=== PATIENT | male | born 1960 | race Caucasian/White ===

== ENCOUNTER 2018-08-20 11:07 | Observation (INO) | payer BC ==
[2018-08-20] MEDS ORDERED: NS 0.9% 1000 ML* 1,000 ML IV ONE (11:53)
[2018-08-20] MEDS ORDERED: Ondansetron INJ* 2 MG/ML VIAL IV ONE (11:53)
[2018-08-20 12:07] LABS: ABS Basophils 0 10^3/ul (0-0.2); ABS Eosinophils 0.1 10^3/ul (0-0.6); ABS Lymphocytes 1.5 10^3/ul (1.0-4.8); ABS Monocytes 0.5 10^3/ul (0-0.8); ABS Neutrophils 3.8 10^3/ul (1.5-7.7); ABS Nucleated RBC 0 10^3/ul; Eosinophil % 0.9 % (0-6); Hematocrit 39 % (42-52); Hemoglobin 13.9 g/dl (14.0-18.0); Lymphocyte % 25.6 % (25-47); Mean Corpuscular HGB Conc 35 g/dl (31-36); Mean Corpuscular Hemoglobin 32 pg (27-31); Mean Corpuscular Volume 91 fL (80-94); Mean Platelet Volume 8.1 um3 (7.4-10.4); Nucleated Red Blood Cells % 0.1; Platelet Count 230 10^3/ul (150-450); Red Blood Count 4.35 10^6/ul (4.00-5.40); Red Cell Distribution Width 13 % (10.5-15); White Blood Count 5.9 10^3/ul (3.5-10.8)
--- NOTE | 2018-08-20 12:19 | ED ---
GI/ HPI - HPI Summary HPI Summary: A 57 y/o male presents to the ED c/o hematemesis since 2:30 08/20/2018. He also c /o heart burn, nausea and black tarry stool. He is on Coumadin because he has a Hx of A-fib. He rates his pain as 2/10. According to the pt, his INR level was 2.08 on 08/16/2018. He is a non smoker but drinks 6 beers a day. He denies shaking when waking up. He denies fever, chills, CONCEPCION, ear pain, sore throat, blurred vision, double vision, neck pain, CP, ABD pain, SOB, back pain, dysuria , hematuria, constipation, edema, bruising, and rashes. He also takes 2 1mg Xanax per day for anxiety. - History of Current Complaint Chief Complaint: EDGIBleed Stated Complaint: BLOOD IN STOOL/VOMIT Hx Obtained From: Patient Onset/Duration: Started Hours Ago Severity: Moderate Current Severity: Moderate Pain Intensity: 2 Location of Pain: Diffuse Associated Signs and Symptoms: Positive: Hematemesis, Black Tarry Stool - Allergy/Home Medications Allergies/Adverse Reactions: Allergies Allergy/AdvReac Type Severity Reaction Status Date / Time No Known Allergies Allergy Verified 08/20/18 11:18 PMH/Surg Hx/FS Hx/Imm Hx Endocrine/Hematology History: Denies: Hx Anticoagulant Therapy, Hx Diabetes Cardiovascular History: Reports: Hx Atrial Fibrillation, Hx Hypercholesterolemia , Hx Hypertension, Other Cardiovascular Problems/Disorders - a fib Denies: Hx Pacemaker/ICD Respiratory History: Denies: Hx Asthma History: Reports: Other Problems/Disorders - HX OF PROSTATE CANCER Denies: Hx Dialysis, Hx Renal Disease Musculoskeletal History: Reports: Other Musculoskeletal History Sensory History: Reports: Hx Contacts or Glasses - GLASSES Denies: Hx Hearing Aid Opthamlomology History: Reports: Hx Contacts or Glasses - GLASSES Psychiatric History: Denies: Hx Panic Disorder - Cancer History Cancer Type, Location and Year: prostate - Surgical History Surgery Procedure, Year, and Place: 2 SURGERIES ON BACK. HERNIA. PROSTATE REMOVE. RIGHT HAND REPAIR. NECK SURGERY. VARICOSE VEINS RIGHT LEG. LEFT ANKLE Hx Anesthesia Reactions: No Infectious Disease History: No Infectious Disease History: Denies: Traveled Outside the [place] in Last 30 Days - Family History Known Family History: Negative: Cardiac Disease, Hypertension, Diabetes - Social History Alcohol Use: Daily Alcohol Amount: 6 beers Hx Substance Use: No Substance Use Type: Reports: Marijuana Substance Use Comment - Amount & Last Used: recreation Hx Tobacco Use: No Smoking Status (MU): Never Smoked Tobacco Review of Systems Negative: Fever, Chills Eyes: Negative - Double vision Negative: Blurred Vision ENT: Negative - Neck pain Negative: Sore Throat, Ear Ache Negative: Chest Pain Negative: Shortness Of Breath Gastrointestinal: Negative - constipation, Other - Positive: hematemesis, black tarry stool, heart burn Positive: Vomiting, Nausea. Negative: Abdominal Pain Negative: dysuria, hematuria Negative: Myalgia - back pain Negative: Rash, Bruising Negative: Headache All Other Systems Reviewed And Are Negative: No Physical Exam - Summary Physical Exam Summary: Appearance: Alert, conversive, nontoxic appearing Skin: Warm, dry, no mottling, no rashes, bruise right humerus HEENT: EOMI, PERRL, slightly dry mucous membranes Neck: No masses on the neck, supple Respiratory: Clear to auscultation, breath sounds present, no rales, no rhonchi , no wheezes Cardiovascular: RRR, pulses are symmetrical in both lower and upper extremities Abdomen: Soft, non-tender Bowel Sounds: Present Musculoskeletal: No CVA tenderness, no obvious deformity, moving all extremities in a grossly normal manner Neurological: A&Ox3, CN II-XII Intact, moving all extremities symmetrically Psychiatric: Normal affect and mood Triage Information Reviewed: Yes Vital Signs On Initial Exam: Initial Vitals Temp Pulse Resp BP Pulse Ox 98.6 F 81 16 175/91 96 08/20/18 11:13 08/20/18 11:13 08/20/18 11:13 08/20/18 11:13 08/20/18 11:13 Vital Signs Reviewed: Yes Diagnostics - Vital Signs Vital Signs Temp Pulse Resp BP Pulse Ox 08/20/18 11:36 78 16 178/94 99 08/20/18 11:35 78 14 98 08/20/18 11:13 98.6 F 81 16 175/91 96 - Laboratory Lab Results: Lab Results 08/20/18 Range/Units 11:54 WBC 5.9 (3.5-10.8) 10^3/ul RBC 4.35 (4.00-5.40) 10^6/ul Hgb 13.9 L (14.0-18.0) g/dl Hct 39 L (42-52) % MCV 91 (80-94) fL MCH 32 H (27-31) pg MCHC 35 (31-36) g/dl RDW 13 (10.5-15) % Plt Count 230 (150-450) 10^3/ul MPV 8.1 (7.4-10.4) um3 Neut % (Auto) 64.6 (38-83) % Lymph % (Auto) 25.6 (25-47) % Wharton % (Auto) 8.1 H (0-7) % Eos % (Auto) 0.9 (0-6) % Baso % (Auto) 0.8 (0-2) % Absolute Neuts (auto) 3.8 (1.5-7.7) 10^3/ul Absolute Lymphs (auto) 1.5 (1.0-4.8) 10^3/ul Absolute Monos (auto) 0.5 (0-0.8) 10^3/ul Absolute Eos (auto) 0.1 (0-0.6) 10^3/ul Absolute Basos (auto) 0 (0-0.2) 10^3/ul Absolute Nucleated RBC 0 10^3/ul Nucleated RBC % 0.1 Result Diagrams: 08/20/18 14:33 08/20/18 11:54 Lab Statement: Any lab studies that have been ordered have been reviewed, and results considered in the medical decision making process. - Radiology CXR Radiology Interpretation Completed By: Radiologist - #. Mildly low lung volumes for this patient compared with the prior exam with corresponding mild atelectasis. This report has been reviewed by the ED physician. - EKG 11:33 Cardiac Rate: NL - 75 bpm EKG Rhythm: Sinus Rhythm Summary of EKG Findings: normal QRS, normal QTc, normal ST/T wave GIGU Course/Dx - Course Course Of Treatment: A 57 y/o male presents to the ED c/o hematemesis since 2: 30 08/20/2018. He also c/o heart burn, nausea and black tarry stool. His CXR showed mildly low lung volumes for this patient compared with the prior exam with corresponding mild atelectasis. His EKG was normal. He will be admitted to Dr. Claros with a diagnosis of GI bleed. - Diagnoses Provider Diagnoses: GI bleed - Physician Notifications Discussed Care Of Patient With: Sravani Claros Time Discussed With Above Provider: 12:15 Instructed by Provider To: Admit As Inpatient Discharge - Sign-Out/Discharge Documenting (check all that apply): Patient Departure - Admit - Discharge Plan Condition: Fair Disposition: ADMITTED TO [facility] - Billing Disposition and Condition Condition: FAIR Disposition: Admitted to [facility] - Attestation Statements Document Initiated by Scribe: Yes Documenting Scribe: Jim Michele Provider For Whom Scribe is Documenting (Include Credential): Swati Knutson MD Scribe Attestation: Jim Walton scribed for Swati Knutson MD on 08/20/18 at 1914. Scribe Documentation Reviewed: Yes Provider Attestation: The documentation as recorded by the Jim toth accurately reflects the service I personally performed and the decisions made by , Swati Knutson MD
[2018-08-20 12:21] LABS: EGFR Non-African American 119.4 (>60)
[2018-08-20 12:26] LABS: INR 3.11 (0.77-1.02)
--- NOTE | 2018-08-20 12:30 | RAD ---
Indication: Chest pain, nausea. Hematemesis last night. Comparison: November 20, 2017 Technique: Upright AP 1200 hours Report: Suboptimal inspiration compared with the prior exam with mild bibasilar subsegmental atelectasis. Negative for pleural effusion or pneumothorax. The heart, pulmonary vasculature, and mediastinal contours are unremarkable. Negative for free air beneath the diaphragm. Anterior cervical fusion hardware noted. IMPRESSION: #. Mildly low lung volumes for this patient compared with the prior exam with corresponding mild atelectasis.
[2018-08-20] MEDS ORDERED: Ondansetron INJ* 2 MG/ML VIAL IV PRN (14:15)
[2018-08-20 14:46] LABS: Hematocrit 40 % (42-52); Hemoglobin 14.2 g/dl (14.0-18.0)
[2018-08-20] MEDS ORDERED: Pantoprazole IV* 40 MG IV ONE (14:48)
[2018-08-20] MEDS ORDERED: Acetaminophen TAB* 325 MG PO PRN (14:56)
[2018-08-20] MEDS ORDERED: Thiamine IV* 100 MG/ML 2 ML VIAL IM ONE (14:56)
[2018-08-20] MEDS ORDERED: hydrALAZINE IV* 20 MG/ML VIAL IV SLOW PU PRN (15:02)
[2018-08-20] MEDS: Folic Acid TAB* 1 MG PO SCH (15:20)
[2018-08-20] MEDS: LORazepam TAB(*) 1 MG PO SCH ×2 (15:20→21:54)
[2018-08-20] MEDS: Lisinopril TAB* 10 MG PO SCH (15:20)
[2018-08-20] MEDS: Atenolol TAB* 50 MG PO SCH (15:20)
[2018-08-20] MEDS ORDERED: Phytonadione Oral Solution* 5 MG/25 ML UDC PO ONE (16:13)
[2018-08-20] MEDS: Octreotide Acetate* 500 MCG in NS 0.9% 100 ML* 100 ML IVPB SCH (16:21)
[2018-08-20] MEDS: Pantoprazole* 80 mg IN NS 80 MG/250 ML BAG IVPB SCH (17:15)
[2018-08-20] MEDS ORDERED: Magnesium Sulfate 2 GM IV* 2 GM/50 ML BAG IVPB ONE (19:37)
[2018-08-20] MEDS: ALPRAZolam TAB* 0.5 MG PO SCH (21:55)
[2018-08-20 22:23] LABS: Hematocrit 38 % (42-52); Hemoglobin 13.1 g/dl (14.0-18.0)
[2018-08-20 22:38] LABS: INR 2.04 (0.77-1.02)
--- NOTE | 2018-08-20 22:38 | HP ---
CC: Dr. Nelson* HISTORY AND PHYSICAL: DATE OF ADMISSION: 08/20/18 PROVIDER: Jennifer Wilson NP PRIMARY CARE PROVIDER: Dr. Nelson. ATTENDING PHYSICIAN WHILE IN THE HOSPITAL: Dr. Sravani Scott * (dictated by Jennifer Wilson NP). CHIEF COMPLAINT: Vomiting. HISTORY OF PRESENT ILLNESS: Mr. Lobo is a 57-year-old male with a past medical history significant for hypertension; hyperlipidemia; prostate cancer; alcoholism; atrial fibrillation, on Coumadin therapy; and history of embolic CVA , who presented to the emergency room reporting vomiting of coffee-ground emesis. The patient reports at approximately 2:30 this morning, he vomited a large amount of dark black coffee-ground emesis. He reports that he also had 2 bowel movements this morning and his second stool was black and tarry. He does report that over the past month, he has had increased heartburn and increased frequency of taking Tums. The patient also reports over the past month, he has had some chronic lower back pain and he has been treating his back pain with ibuprofen 400 mg taking this on a daily basis. The patient denies any recent illnesses. Denies any abdominal pain. He does report some nausea and vomiting. Denies any fever. Denies any shortness of breath, hemoptysis, or cough. Given his vomiting of coffee-ground emesis and black and tarry stools, we were asked to see and evaluate him for admission. PAST MEDICAL HISTORY: Significant for: 1. Atrial fibrillation, on anticoagulant therapy with Coumadin. 2. Hypertension. 3. Hyperlipidemia. 4. History of embolic CVA. 5. Prostate cancer. 6. Alcoholism. PAST SURGICAL HISTORY: Significant for: 1. Back surgery. 2. Neck fusion. 3. Prostatectomy for prostate cancer. HOME MEDICATIONS: Include: 1. Coumadin 4 mg p.o. daily except Thursday when he takes 5 mg. 2. Lisinopril 40 mg p.o. daily. 3. Ibuprofen 400 mg p.o. daily. 4. Atenolol 50 mg p.o. daily. 5. Xanax 1 mg p.o. at 7 a.m. and 11 a.m. ALLERGIES TO MEDICATIONS: No known drug allergies. FAMILY HISTORY: Denies any history of coronary artery disease or diabetes. SOCIAL HISTORY: The patient denies any tobacco use. He does report he drinks beer on a daily basis 6 cans daily. He reports he has drink for over the past 40 years. He does report occasional marijuana use. He currently is employed. He is . Surrogate decision maker in the event he is unable to make his own decisions is his , Camryn Lobo. Her phone number is [phone]. He is a full code. REVIEW OF SYSTEMS: There was no documented fever. There has been no significant weight change. Denies any double vision. Denies any ear discharge. Denies rhinorrhea. Denies any sore throat. He denies any chest pain, orthopnea, or nocturnal dyspnea. There was no abdominal pain. He does report some nausea. He does report vomiting coffee-ground emesis large amount at home and then x1 in the emergency room. He denies any dysuria or urinary frequency. Denies any seizures, loss of consciousness, pruritus, or skin ulcerations. A review of 14 systems was completed and all others are negative. PHYSICAL EXAMINATION GENERAL: At this time, Mr. Lobo is a 57-year-old male, who appears mildly anxious, sitting on the stretcher in the emergency room. VITAL SIGNS: Blood pressure was 174/92, heart rate 81, respirations 20, O2 saturation 98%, temperature was 98.5. HEENT: Head is atraumatic, normocephalic. Eyes: EOMs are intact. Sclerae are anicteric and not pale. Oral mucosa appeared to be moist. NECK: Supple. LUNGS: Clear to auscultation bilaterally. No wheezes, rales, or rhonchi. CARDIAC: S1, S2. Regular rate and rhythm. No murmurs, rubs, or gallops. ABDOMEN: Soft, flat, nontender. Bowel sounds are active x4. EXTREMITIES: Pulses are +2 bilaterally. He is able to move all 4 extremities with 5/5 strength. NEUROLOGIC: He is awake, alert, and oriented x3. Handgrips are equal. Speech is clear. There are no gross focal deficits. SKIN: Intact. DIAGNOSTIC STUDIES/LAB DATA: WBCs were 5.9, RBCs 4.35, hemoglobin 13.9, hematocrit was 39, platelet count was 230. INR was 3.11, APTT was 48.5. Sodium was 125, potassium 4.4, chloride was 91, carbon dioxide was 26, anion gap was 8, BUN was 10, creatinine 0.68, magnesium was 1.7. TSH was 1.64. Chest x-ray showed mildly low lung volumes when compared to prior exam corresponding with mild atelectasis. He had an electrocardiogram, which showed sinus rhythm at a rate of 75. ASSESSMENT AND PLAN: Mr. Lobo is a 57-year-old male, who presented to the emergency room with complaints of vomiting blood. We were asked to see and evaluate him for admission. He will be admitted under observation for: 1. Upper GI bleed. I suspect this is probably related to NSAID in combination with Coumadin and daily alcohol use. He will be given Protonix 80 mg bolus and then placed on a drip. I will hold his Coumadin at this time. I have consulted Gastroenterology. He will have his H and H trended q.6 hours. 2. Atrial fibrillation. At this time, we will hold his Coumadin. He is currently in sinus rhythm at a rate of 75. We will continue to monitor him on telemetry. His CHADS-VASc score is a 3 giving him a 3.2% per year risk of stroke and his HAS- BLED score is 4 giving him an 8.7% per 100 patients risk of bleeding. 3. Hypertension. I will continue him on his lisinopril and atenolol. 4. Hyperlipidemia. He is not currently on any home medications. 5. Alcoholism. The patient currently drinks 6 beers a day. He will be placed on WAM protocol and monitored throughout this hospitalization for withdrawal symptoms. 6. Anxiety. The patient currently takes Xanax 1 mg at 7 a.m. and 11 a.m. at home on a daily basis. He will be continued on Xanax as well as his WAM protocol with parameters for holding for sedation. 7. Diet: He can have clear liquids. 8. Code status: He is a full code. 9. DVT prophylaxis: He will be placed on SCDs and ambulation will be encouraged. TIME SPENT: Time spent on this admission was approximately 60 minutes, greater than half of that time was spent [id number] with the patient obtaining my history and physical, the other half of the time was spent going over my plan of care and implementing my plan of care. JENNIFER WILSON, DELICATESSEN MANAGER [id number]/[facility] #: [id number] MONA
--- NOTE | 2018-08-20 23:53 | CONS ---
CONSULTATION REPORT: DATE OF CONSULT: 08/20/18 REQUESTING PROVIDER: Jennifer Wilson NP REASON FOR CONSULT: Melena, acute blood loss anemia. HISTORY OF PRESENT ILLNESS: This is a 57-year-old male, who presents to the emergency room with abrupt onset of hematemesis this morning around 2:30 in the morning. He states he has been com plaining of epigastric pain and heartburn over the left 3 to 4 weeks that has become worse; however, this morning, he woke up abruptly and had profuse hematemesis of multiple episodes, initially coffee- ground in nature and then a little bit more brighter red afterwards; however, by the time he presente d to the emergency room, he states that it returned to a coffee-ground emesis color. Prior to this, he noted no change in his stool, but on a recent bowel movement here at the hospital, he noticed that the stool was black and tarry. He admits to longstanding reflux over the years, takes occasional ove [id number] medicine. He is anticoagulated with Coumadin for his atrial fibrillation. He has been on this for a period of 9 years. He states that his epigastric pain has been 4/10, sharp in nature in the epigastric region; it can be worse after eating. Nothing seems to make it better or worse. He also states that he drinks at least a 6-pack of beer each evening, sometimes more and he has been do ing this for over 40 years since he was 6 years old, he states. He states that he had a colonoscopy some number of years ago, but it is unclear with who. He denies any unintentional weight loss or gai n. No dysphagia, no odynophagia. Denies any diarrhea or constipation or change in bowel habits. He admits to taking quite a few ibuprofen over the last couple of weeks for increasing arthritis pain. He denies any known history of liver disease or history of injection drug use. The remainder of the 14- point review of systems is grossly negative. PAST MEDICAL HISTORY: Atrial fibrillation, diabetes, hypercholesterolemia, hypertension, and prostat e cancer. PAST SURGICAL HISTORY: He had prostate removal, no radiation; neck surgery; hernia repair. ALLERGIES: No known drug allergies. FAMILY HISTORY: No known GI malignancies or inflammatory bowel disease. SOCIAL HISTORY: Drinks at least a 6-pack of beer a day, sometimes more for over 40 years. Also admi ts to marijuana use. Does not smoke tobacco. OBJECTIVE DATA: Vital Signs: Blood pressure is 105/67, pulse is 57, respiratory rate is 18, oxygen saturation is 97% on room air. In general, he is alert and oriented, in no acute distress. HEENT: Atraumatic, normocephalic. Pupils are equal, round, and reactive to light. Extraocular movements ar e intact. Sclerae anicteric. Conjunctivae are pink. Neck is supple. Trachea midline. Cardiovascul ar: Regular rate and rhythm. S1, S2. Respiratory: Clear to auscultation bilaterally. No wheezes, rhonchi, or rales. Abdomen is soft, mild tenderness to palpation in the epigastric region without r adiation. No guarding or rebound. Bowel sounds are positive. Extremities: No clubbing, no cyanosi s, no edema. Skin Exam: A few scattered ecchymoses are present. Neurologic Exam: Nonfocal. Moves all extremities. Psychiatry Exam: Normal affect and mood. LABORATORY DATA: Hemoglobin on admission 13.9, repeat a few hours later 14.2; platelet count is 230. INR is 3.11. Chemistry: Sodium 125, potassium 4.4, chloride is 91, bicarb is 26, BUN is 10, creat inine is 0.68, magnesium is 1.7. AST is 36, ALT is 26, alkaline phosphatase 50. TSH is 1.64. He wa s occult positive for stool. ASSESSMENT AND PLAN: This is a 57-year-old male with hematemesis. 1. Hematemesis. He does not really have a prodrome of nausea and retching to consider a Anisha-Jarocho ss. A few things on the differential include peptic ulcer disease from nonsteroidal anti-inflammator y drug use with the addition of his alcohol use. It is possible that he has developed evidence of po rtal hypertension. Given that his current INR is 3.11, EGD is not appropriate at this time, he is cur rently hemodynamically stable, he is not tachycardic, hypotensive or orthostatic, we discussed with t gabriela hospitalist service here and recommend H and H's every 6 hours, keep 2 units of PRBCs on hold, jakub jesús the head of the bed elevated at about 30 degrees at all times. Notify my service of any changes in the patient's condition and we will plan on recommending reversal of the INR. They will be getting 2 units of FFP and rechecking the INR. Ideally, this should be under 1.5 for safe endoscopy, but giv en changes in clinical condition, can consider otherwise. I would also start a Protonix drip and als o an octreotide drip until the definitive etiology of his hematemesis is identified. 2. EtOH abuse. The patient extensively counseled, discussed that he is having an unhealthy amount o f alcohol and needs complete cessation. 3. Atrial fibrillation, on anticoagulation with supratherapeutic INR per primary service. [id number]/[facility] #: [id number]
[2018-08-21] MEDS: LORazepam TAB(*) 1 MG PO SCH ×2 (02:19→06:10)
[2018-08-21 02:34] LABS: Hematocrit 37 % (42-52); Hemoglobin 12.9 g/dl (14.0-18.0)
[2018-08-21] MEDS: Pantoprazole* 80 mg IN NS 80 MG/250 ML BAG IVPB SCH (03:41)
[2018-08-21] MEDS: Octreotide Acetate* 500 MCG in NS 0.9% 100 ML* 100 ML IVPB SCH ×2 (03:41→15:20)
[2018-08-21 07:44] LABS: INR 1.37 (0.77-1.02)
[2018-08-21 07:55] LABS: EGFR Non-African American 106.6 (>60); Hematocrit 38 % (42-52); Hemoglobin 13.3 g/dl (14.0-18.0); Mean Corpuscular HGB Conc 35 g/dl (31-36); Mean Corpuscular Hemoglobin 32 pg (27-31); Mean Corpuscular Volume 93 fL (80-94); Mean Platelet Volume 8.5 fL (7.4-10.4); Platelet Count 175 10^3/ul (150-450); Red Blood Count 4.11 10^6/ul (4.00-5.40); Red Cell Distribution Width 13 % (10.5-15); White Blood Count 4.4 10^3/ul (3.5-10.8)
[2018-08-21] MEDS: Atenolol TAB* 50 MG PO SCH (08:19)
[2018-08-21] MEDS: ALPRAZolam TAB* 0.5 MG PO SCH (08:19)
[2018-08-21] MEDS: Folic Acid TAB* 1 MG PO SCH (08:20)
[2018-08-21] MEDS: Lisinopril TAB* 10 MG PO SCH (08:20)
[2018-08-21] MEDS ORDERED: Thiamine TAB* 100 MG TAB PO SCH (09:00)
[2018-08-21] MEDS ORDERED: Multivitamins/Minerals TAB PO SCH (09:00)
--- NOTE | 2018-08-21 10:51 | PN ---
Subjective Date of Service: 08/21/18 Interval History: No more coffee ground emesis, melena or BMs s/p 2 units FFP (6->9, 11->2am) INR to 1.37. Had been 2.8 on 08/17 on outpatient physical lab check with PCP. Generally very stable dosing. ibuprofen 400mg 2-4 a day for 1 month for neck pain. planning to get disk fusion with Dr. Oswaldo Heredia this winter. 2 colonoscopies, both with "small polyps", not currently due he says. Objective Active Medications: Acetaminophen (Tylenol Tab*) 650 mg PO Q4H PRN PRN Reason: PAIN Alprazolam (Xanax Tab*) 1 mg PO BID [facility] Last Admin: 08/21/18 08:19 Dose: 1 mg Atenol[facility] ([facility]ormin Tab*) [facility] Admin: 08/21/18 08:19 Dose: Not Given Folic Acid (Folvite Tab*) 1 mg PO DAILY [facility] Last Admin: 08/21/18 08:20 Dose: 1 mg Hydralazine HCl (Apresoline Iv*) 5 mg IV SLOW PU Q6H PRN PRN Reason: Systolic Bp Greater Than:180 Pantoprazole Sodium (Protonix Iv Bag*) 80 mg in 250 mls @ 25 mls/hr IVPB Q10H [facility] Last Admin: 08/21/18 03:41 Dose: 25 mls/hr Octreotide Acetate 500 mcg/ (Sodium Chloride) 101 mls @ 10.1 mls/hr IVPB Q10H [facility] Last Admin: 08/21/18 03:41 Dose: 10.1 mls/hr Lisinopril (Prinivil Tab*) 40 mg PO QAM [facility] Last Admin: 08/21/18 08:20 Dose: 40 mg Lorazepam (Ativan Tab(*)) 0 - 6 mg PO .PER [facility] PROTOCOL [facility]; Protocol Last Admin: 08/21/18 06:10 Dose: 2 mg Multivitamins/Minerals (Theragran/Minerals Tab*) 1 tab PO DAILY [facility] Last Admin: 08/21/18 08:20 Dose: 1 tab Ondansetron HCl (Zofran Inj*) 4 mg IV Q6H PRN PRN Reason: NAUSEA Last Admin: 11/03/18 06:17 Dose: 4 mg Thiamine HCl (Vitamin B-1 Tab*) 100 mg PO DAILY [facility] Last Admin: 08/21/18 08:20 Dose: 100 mg Vital Signs - 8 hr 08/21/18 08/21/18 08/21/18 03:00 03:12 05:00 Temperature 98.6 F Pulse Rate 63 Respiratory 18 16 18 Rate Blood Pressure 154/89 (mmHg) O2 Sat by Pulse 98 Oximetry 08/21/18 08/21/18 08/21/18 05:03 05:17 06:10 Temperature 97.9 F Pulse Rate 54 Respiratory 16 16 18 Rate Blood Pressure 162/82 (mmHg) O2 Sat by Pulse 98 Oximetry 08/21/18 08/21/18 08/21/18 07:00 07:18 08:00 Temperature 97.8 F Pulse Rate 60 Respiratory 16 16 16 Rate Blood Pressure 155/81 (mmHg) O2 Sat by Pulse 97 Oximetry 08/21/18 08/21/18 08/21/18 08:19 08:25 09:00 Temperature Pulse Rate Respiratory 16 16 16 Rate Blood Pressure (mmHg) O2 Sat by Pulse Oximetry 08/21/18 09:05 Temperature 98.1 F Pulse Rate 50 Respiratory 16 Rate Blood Pressure 152/84 (mmHg) O2 Sat by Pulse 97 Oximetry Oxygen Devices in Use Now: None Appearance: NAD standing in street clothes. Eyes: No Scleral Icterus Ears/Nose/Mouth/Throat: NL Teeth, Lips, Gums Neck: NL Appearance and Movements; NL JVP, Trachea Midline Respiratory: Symmetrical Chest Expansion and Respiratory Effort, Clear to Auscultation Cardiovascular: NL Sounds; No Murmurs; No JVD, RRR Abdominal: NL Sounds; No Tenderness; No Distention, No Hepatosplenomegaly Extremities: No Edema, No Clubbing, Cyanosis Skin: No Rash or Ulcers, No Nodules or Sclerosis Neurological: Alert and Oriented x 3, NL Sensation, NL Muscle Strength and Tone Nutrition: Taking PO's Result Diagrams: 08/21/18 07:23 08/21/18 07:23 Additional Lab and Data: Laboratory Results - last 24 hr 08/20/18 08/20/18 08/20/18 11:54 11:54 11:54 WBC 5.9 RBC 4.35 Hgb 13.9 L Hct 39 L MCV 91 MCH 32 H MCHC 35 RDW 13 Plt Count 230 MPV 8.1 Neut % (Auto) 64.6 Lymph % (Auto) 25.6 Cass % (Auto) 8.1 H Eos % (Auto) 0.9 Baso % (Auto) 0.8 Absolute Neuts (auto) 3.8 Absolute Lymphs (auto) 1.5 Absolute Monos (auto) 0.5 Absolute Eos (auto) 0.1 Absolute Basos (auto) 0 Absolute Nucleated RBC 0 Nucleated RBC % 0.1 INR (Anticoag Therapy) 3.11 H APTT 48.5 H Sodium 125 L Potassium 4.4 Chloride 91 L Carbon Dioxide 26 Anion Gap 8 BUN 10 Creatinine 0.68 Est GFR ( Amer) 144.4 Est GFR (Non-Af Amer) 119.4 BUN/Creatinine Ratio 14.7 Glucose 97 Calcium 10.1 Magnesium 1.7 L Total Bilirubin 0.70 AST 36 ALT 26 Alkaline Phosphatase 50 Troponin I 0.00 Total Protein 7.6 Albumin 4.2 Globulin 3.4 Albumin/Globulin Ratio 1.2 Lipase 48 TSH 1.64 Blood Type Antibody Screen Crossmatch 08/20/18 08/20/18 08/20/18 11:54 14:33 22:16 WBC RBC Hgb 14.2 13.1 L Hct 40 L 38 L MCV MCH MCHC RDW Plt Count MPV Neut % (Auto) Lymph % (Auto) Cass % (Auto) Eos % (Auto) Baso % (Auto) Absolute Neuts (auto) Absolute Lymphs (auto) Absolute Monos (auto) Absolute Eos (auto) Absolute Basos (auto) Absolute Nucleated RBC Nucleated RBC % INR (Anticoag Therapy) APTT Sodium Potassium Chloride Carbon Dioxide Anion Gap BUN Creatinine Est GFR ( Amer) Est GFR (Non-Af Amer) BUN/Creatinine Ratio Glucose Calcium Magnesium Total Bilirubin AST ALT Alkaline Phosphatase Troponin I Total Protein Albumin Globulin Albumin/Globulin Ratio Lipase TSH Blood Type B Positive Antibody Screen Negative Crossmatch See Detail 08/20/18 08/21/18 08/21/18 22:16 02:26 07:23 WBC RBC Hgb 12.9 L Hct 37 L MCV MCH MCHC RDW Plt Count MPV Neut % (Auto) Lymph % (Auto) Cass % (Auto) Eos % (Auto) Baso % (Auto) Absolute Neuts (auto) Absolute Lymphs (auto) Absolute Monos (auto) Absolute Eos (auto) Absolute Basos (auto) Absolute Nucleated RBC Nucleated RBC % INR (Anticoag Therapy) 2.04 H 1.37 H APTT Sodium Potassium Chloride Carbon Dioxide Anion Gap BUN Creatinine Est GFR ( Amer) Est GFR (Non-Af Amer) BUN/Creatinine Ratio Glucose Calcium Magnesium Total Bilirubin AST ALT Alkaline Phosphatase Troponin I Total Protein Albumin Globulin Albumin/Globulin Ratio Lipase TSH Blood Type Antibody Screen Crossmatch 08/21/18 08/21/18 07:23 07:23 WBC 4.4 RBC 4.11 Hgb 13.3 L Hct 38 L MCV 93 MCH 32 H MCHC 35 RDW 13 Plt Count 175 MPV 8.5 Neut % (Auto) Lymph % (Auto) Cass % (Auto) Eos % (Auto) Baso % (Auto) Absolute Neuts (auto) Absolute Lymphs (auto) Absolute Monos (auto) Absolute Eos (auto) Absolute Basos (auto) Absolute Nucleated RBC Nucleated RBC % INR (Anticoag Therapy) APTT Sodium 132 L Potassium 4.3 Chloride 100 L Carbon Dioxide 25 Anion Gap 7 BUN 9 Creatinine 0.75 Est GFR ( Amer) 129.0 Est GFR (Non-Af Amer) 106.6 BUN/Creatinine Ratio 12.0 Glucose 127 H Calcium 8.8 Magnesium Total Bilirubin AST ALT Alkaline Phosphatase Troponin I Total Protein Albumin Globulin Albumin/Globulin Ratio Lipase TSH Blood Type Antibody Screen Crossmatch Microbiology and Other Data: Microbiology 08/20/18 17:30 Stool Stool Occult Blood (FILIBERTO) - Final Assess/Plan/Problems-Billing Assessment: 57 yo male PMH 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 Does have EtOH abuse hx and Liver US is also planned - appreciate GI assistance - EGD - protonix gtt - octreotide gtt - NSAID avoidance - colonoscopy with Dr. Owens 09/23/11 showed mild diverticulosis, internal hemorrhoids. No polyp - colonoscopy with Dr. Silva 08/14/06 with hyperplastic polyp - Hgb stable #pAfib - coumadin held, s/p FFP x2 and vitamin K 5mg po - CHADSVASC of 3 (HTN, CVA) #HTN - lisinopril 40 - atenolol 50 #EtOH - WAM - not scoring,. is on xanax 1mg BID (0.5mg BID at home) - folate, thiamine, Multivitamin FEN: npo for now CODE: FULL Dispo: obs, pending EGD results if can be discharged today. Attending: Se Hutchins
[2018-08-21] MEDS ORDERED: Midazolam* 1 MG/ML 5 ML VIAL (5 MG) ONE (11:31)
[2018-08-21] MEDS ORDERED: fentaNYL* 50 MCG/ML 2 ML VIAL (100 MCG VIAL) ONE (11:31)
[2018-08-21] MEDS ORDERED: Lidocaine 2% PF * 5 ML VIAL ONE (11:37)
[2018-08-21] MEDS ORDERED: Propofol* 10 MG/ML 20 ML BTL IV PUSH ONE (11:37)
[2018-08-21] MEDS ORDERED: fentaNYL* 50 MCG/ML 2 ML VIAL (100 MCG VIAL) IV PRN (12:17)
[2018-08-21] MEDS ORDERED: Naloxone* 0.4 MG/ML 1 ML VIAL IV PRN (12:17)
[2018-08-21] MEDS ORDERED: HYDROcodone/ACETAMIN 5-325 MG* 1 TAB PO PRN (12:17)
[2018-08-21] MEDS ORDERED: Ondansetron INJ* 2 MG/ML VIAL IV PRN (12:17)
[2018-08-21] MEDS ORDERED: Acetaminophen TAB* 325 MG PO PRN (12:17)
[2018-08-21] MEDS ORDERED: Omeprazole CAP* 20 MG PO SCH (13:00)
--- NOTE | 2018-08-21 14:07 | RAD ---
HISTORY: Alcohol abuse COMPARISONS: None TECHNIQUE: Multiple transverse and longitudinal ultrasound images were obtained of the right upper quadrant. FINDINGS: LIVER: The liver is normal in dimensions and echogenicity. Normal hepatic and portal venous blood flow is duplicated with color flow imaging. There is no gross intrahepatic biliary duct dilatation. GALLBLADDER AND EXTRAHEPATIC BILIARY DUCT: The gallbladder is normal in appearance without intraluminal stones or other soft tissue masses. There is no pericholecystic fluid or gallbladder wall thickening. The common bile duct measures a maximum diameter of 3 mm. PANCREAS: The portions of the pancreas not obscured by bowel gas are normal in appearance. RIGHT KIDNEY: The right kidney is normal in size, morphology and echogenicity. AORTA AND IVC: The visualized portions are normal in appearance and not pathologically dilated. IMPRESSION: Normal ultrasound of the right upper quadrant.
[2018-08-21 15:00] VITALS: BP 164/85
--- NOTE | 2018-08-22 03:19 | DS ---
DISCHARGE SUMMARY: DATE OF ADMISSION: 08/20/18 DATE OF DISCHARGE: 08/21/18 ADMITTING PROVIDER: Jennifer Wilson NP PRIMARY CARE PHYSICIAN: Dr. Nelson. ATTENDING PHYSICIAN ON THE DAY OF DISCHARGE: Se Hutchins MD CONSULTING WELL SERVICE FLOORPERSON: Dr. Forrest. CHIEF COMPLAINT: Hematemesis with coffee-ground emesis; abdominal discomfort. PRINCIPAL DIAGNOSES: Hematemesis and melena secondary to severe erosive esophagitis in the setting of increased nonsteroidal antiinflammatory drug use and daily longstanding alcohol abuse; atrial fibrillation, on Coumadin. HISTORY OF PRESENT ILLNESS AND HOSPITAL COURSE: Rory Lobo is a 57-year- old male with past medical history of hypertension; hyperlipidemia; prostate cancer; alcoholism since the age of 16; paroxysmal atrial fibrillation, on Coumadin; history of embolic CVA, presented to the emergency room with coffee- ground emesis starting 2:30 in the morning on the day of admission. A second bowel movement on the day was also melanotic. He states that he has been taking 2 to 4 tabs of his 400 mg ibuprofen for the last month to try to address his cervical degenerative disk disease (he is planning on having fusion surgery later this winter at [place] with Dr. Gudino). He is referred to the hospitalist service for admission and Dr. Forrest of GI was consulted. Given his longstanding alcohol use, there was some concern that portal gastropathy or portal hypertensive gastropathy or cirrhotic like etiologies could be contributing, such as esophageal varices, and he was started on octreotide drip along with Protonix drip. Hemoglobins were stable. On repeat testing, he was given IV fluids, made n.p.o. for EGD performed by Dr. Forrest the next day. After correction of his INR, which initially had been 3.1, he was given 5 p.o. of vitamin K and 2 units of FFP to correct that, and it has fallen to 1.37 ( below threshold of 1.5 preferred by GI). EGD reportedly showed severe erosive esophagitis, the formal read is still pending and Dr. Forrest recommended twice daily PPI for 3 months and follow up EGD at that time. He had biopsies for H. pylori which are pending. He also had a liver ultrasound which was within normal limits. He had a right upper quadrant ultrasound that was within normal limits and liver function tests that were completely within normal limits. He has been recommended to follow up with Dr. Amina Nelson in 2 days after discharge and he already had his annual physical scheduled for 08/23/18. He was told to stop the Coumadin for a few days until I can discuss further with Dr. Nelson, and otherwise, I would recommend potentially restarting his Coumadin in a week for his paroxysmal atrial fibrillation (CHADS-VASc2 score of 3). DISCHARGE MEDICATIONS: Include: 1. Xanax 1 mg p.o. b.i.d. 2. Atenolol 3 mg p.o. q.a.m. 3. Folic acid 1 mg p.o. daily. 4. Lisinopril 40 mg p.o. daily. 5. Thiamin 100 mg p.o. daily. 6. Prilosec 20 mg p.o. b.i.d. 7. Warfarin 4 mg p.o. daily except for Sundays and 5 mg on Thursday. FOLLOWUP: Please follow up with Dr. Amina Nelson on 08/23/[address] Forrest within 3 months. He is told not to use NSAIDs and alcohol use. TIME SPENT: Time spent on discharge 35 minutes. [id number]/[facility] #: [id number] MONA
--- NOTE | 2018-08-23 03:55 | PRO ---
CC: Dr. Amina Nelson; Dr. Sravani Scott.* DATE OF PROCEDURE: 08/21/18 - ROOM #414 PRIMARY CARE PHYSICIAN: Sravani Scott MD PROCEDURE PERFORMED: Esophagogastroduodenoscopy with biopsies. INDICATION: Hematemesis, epigastric pain. MEDICATIONS GIVEN: Please see anesthesia record. DESCRIPTION OF PROCEDURE: After the EGD procedure including the risks, benefits and alternatives with the risk not limited to perforation surgery, missed lesions and/or were explained to the patient. Written consent was then obtained. IV medication was given, the bite block was placed between the teeth. The adult Olympus gastroscope was passed through the patient's mouth, through the upper esophageal sphincter into the tubular esophagus. In the distal esophagus, he had LA-D erosive esophagitis. There was distinct vessel or evidence of a Anisha-Dexter tear. There was no fresh or old blood. Advancement through this area into the stomach revealed gastritis this was biopsied for CHEYANNE testing. On retroflexion, no large hiatal hernia was visualized. Continuing into the pyloric region, the scope was advanced through the pylorus into the duodenal bulb. He did have some mild erythema and superficial erosion, these were biopsied. The scope was advanced through the C loop and the distal duodenum, which were normal in appearance. The GE junction was at 40 cm. He tolerated the procedure well. He returned to the recovery room in stable condition. IMPRESSION: 1. Complete esophagogastroduodenoscopy with biopsies. 2. Lorain-D erosive esophagitis. 3. Gastritis, biopsied for CLOtesting. 4. Duodenal erosions, suspect to nonsteroidal anti-inflammatory drugs, biopsied. RECOMMENDATIONS: At this time, recommend he completely avoid NSAIDs. In addition, I will place him on b.i.d. PPI therapy for a period of 3 months to heal up his LA-D erosive esophagitis. Recommend complete cessation of alcohol given he is drinking more than a 6 pack at night for over 40 years. In addition , we will plan on repeat EGD in 3 months' time to see if that erosive esophagitis has healed. In addition to evaluate the mucosa underneath for Bermudez's esophagus. At this point, his diet can be advanced. The cause of his scant hematemesis was likely just LA-D erosive esophagitis. [id number]/[facility] #: [id number] [facility]
== END 2018-08-21 15:45 | disposition home or self-care (01) ==
LOC: ED 11:07 → MED 13:09
PROVIDERS: ADMIT Internal Medicine; ATTEND Internal Medicine
DX: K92.1 Melena (principal); D62 Acute posthemorrhagic anemia; K92.0 Hematemesis; R10.9 Unspecified abdominal pain; I48.91 Unspecified atrial fibrillation; Z79.01 Long term (current) use of anticoagulants; E11.9 Type 2 diabetes mellitus without complications; Z85.46 Personal history of malignant neoplasm of prostate
CPT/HCPCS: 36415; 71045; 76705; 80048; 80053; 82272; 83690; 83735; 84443; 84484; 85014; 85018; 85025; 85027; 85610; 85730; 86850; 86900; 86901; 86922; 86927; 87077; 88305; 93005; 96365; 96366; 96375; 96376; 99284; A9270-GY; J2250; J2354; J2405; J2704; J3010; J3411; J3475; P9017

== ENCOUNTER 2018-10-05 21:51 | Emergency (ER) | payer BC ==
[2018-10-05] MEDS ORDERED: NS 0.9% 1000 ML* 1,000 ML IV ONE (22:11)
[2018-10-05] MEDS ORDERED: Ondansetron INJ* 2 MG/ML VIAL IV ONE (22:11)
[2018-10-05 22:28] LABS: ABS Basophils 0 10^3/ul (0-0.2); ABS Eosinophils 0.1 10^3/ul (0-0.6); ABS Lymphocytes 1.5 10^3/ul (1.0-4.8); ABS Monocytes 0.6 10^3/ul (0-0.8); ABS Neutrophils 4.2 10^3/ul (1.5-7.7); ABS Nucleated RBC 0 10^3/ul; Hematocrit 41 % (42-52); Hemoglobin 14.1 g/dl (14.0-18.0); Mean Corpuscular HGB Conc 35 g/dl (31-36); Mean Corpuscular Hemoglobin 32 pg (27-31); Mean Corpuscular Volume 92 fL (80-94); Mean Platelet Volume 7.4 fL (7.4-10.4); Nucleated Red Blood Cells % 0; Platelet Count 261 10^3/ul (150-450); Red Blood Count 4.43 10^6/ul (4.00-5.40); Red Cell Distribution Width 14 % (10.5-15); White Blood Count 6.5 10^3/ul (3.5-10.8)
[2018-10-05 22:44] LABS: BUN/Creatinine Ratio 12.9 (8-20); Calcium 9.1 mg/dL (8.6-10.3); EGFR Non-African American 92.3 (>60); Potassium 4.1 mmol/L (3.5-5.0)
[2018-10-05] MEDS ORDERED: Acetaminophen TAB* 325 MG PO ONE (22:44)
--- NOTE | 2018-10-05 22:51 | ED ---
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 He started drinking tonight after finding out his friend has a stroke. Patient later was walking down the stairs when he tripped and fell down the remaining 4-5 steps. Patient reports LOC, headache, and inability to lift left arm up (preexisting symptom). Patient takes Coumadin for A Fib, also takes Atenolol, Lisinopril, and Xanax. He smokes marijuana but does not smoke. He drinks almost every day. - History Of Current Complaint Chief Complaint: EDHeadInjury Stated Complaint: FALL Time Seen by Provider: 10/05/18 21:53 Hx Obtained From: Patient Mechanism Of Injury: Fall From A Standing Position - Down 4-5 steps Onset/Duration: Traumatic Onset of Pain: Immediate Pain Intensity: 0 Location of Head Injury: Occipital Associated Signs And Symptoms: LOC Duration Unknown, Headache, Other: - inability to lift left arm up (preexisting symptom) - Allergies/Home Medications Allergies/Adverse Reactions: Allergies Allergy/AdvReac Type Severity Reaction Status Date / Time No Known Allergies Allergy Verified 08/20/18 11:18 PMH/Surg Hx/FS Hx/Imm Hx Endocrine/Hematology History: Denies: Hx Anticoagulant Therapy, Hx Diabetes Cardiovascular History: Reports: Hx Atrial Fibrillation, Hx Hypercholesterolemia , Hx Hypertension, Other Cardiovascular Problems/Disorders - a fib Denies: Hx Pacemaker/ICD Respiratory History: Denies: Hx Asthma History: Reports: Other Problems/Disorders - HX OF PROSTATE CANCER Denies: Hx Dialysis, Hx Renal Disease Musculoskeletal History: Reports: Other Musculoskeletal History Sensory History: Reports: Hx Contacts or Glasses - GLASSES Denies: Hx Hearing Aid Opthamlomology History: Reports: Hx Contacts or Glasses - GLASSES Psychiatric History: Denies: Hx Panic Disorder - Cancer History Cancer Type, Location and Year: prostate - Surgical History Surgery Procedure, Year, and Place: 2 SURGERIES ON BACK. HERNIA. PROSTATE REMOVE. RIGHT HAND REPAIR. NECK SURGERY. VARICOSE VEINS RIGHT LEG. LEFT ANKLE Hx Anesthesia Reactions: No Infectious Disease History: No Infectious Disease History: Denies: Traveled Outside the [place] in Last 30 Days - Family History Known Family History: Negative: Cardiac Disease, Hypertension, Diabetes - Social History Alcohol Use: Daily Alcohol Amount: 6 beers Hx Substance Use: No Substance Use Type: Reports: None Substance Use Comment - Amount & Last Used: recreation Hx Tobacco Use: No Smoking Status (MU): Never Smoked Tobacco Review of Systems Positive: Other - Inability to lift left arm up Positive: Headache, Syncope - LOC All Other Systems Reviewed And Are Negative: Yes Physical Exam - Summary Physical Exam Summary: Appearance: Well appearing, no pain distress Skin: warm, dry, reflects adequate perfusion Head/face: Hematoma on the occipital, no active bleeding, theres a small abrasion Eyes: EOMI, CHELSEA ENT: mucous membranes moist Neck: supple, non-tender, Full ROM Respiratory: CTA, breath sounds present Cardiovascular: RRR, pulses symmetrical Abdomen: non-tender, soft Bowel Sounds: present Musculoskeletal: normal, strength/ROM intact Neuro: normal, sensory motor intact, A&Ox3. not slurring speech, no tremor GCS: 15 Triage Information Reviewed: Yes Vital Signs On Initial Exam: Initial Vitals Resp BP 19 180/93 10/05/18 22:08 10/05/18 22:08 Vital Signs Reviewed: Yes Diagnostics - Vital Signs Vital Signs Temp Pulse Resp BP Pulse Ox 10/05/18 22:09 97.8 F 83 18 180/93 99 10/05/18 22:08 19 180/93 - Laboratory Lab Results: Lab Results 10/05/18 10/05/18 Range/Units 22:16 22:16 WBC 6.5 (3.5-10.8) 10^3/ul RBC 4.43 (4.00-5.40) 10^6/ul Hgb 14.1 (14.0-18.0) g/dl Hct 41 L (42-52) % MCV 92 (80-94) fL MCH 32 H (27-31) pg MCHC 35 (31-36) g/dl RDW 14 (10.5-15) % Plt Count 261 (150-450) 10^3/ul MPV 7.4 (7.4-10.4) fL Neut % (Auto) 65.8 % Lymph % (Auto) 23.0 % Greenlee % (Auto) 8.5 % Eos % (Auto) 2.0 % Baso % (Auto) 0.7 % Absolute Neuts (auto) 4.2 (1.5-7.7) 10^3/ul Absolute Lymphs (auto) 1.5 (1.0-4.8) 10^3/ul Absolute Monos (auto) 0.6 (0-0.8) 10^3/ul Absolute Eos (auto) 0.1 (0-0.6) 10^3/ul Absolute Basos (auto) 0 (0-0.2) 10^3/ul Absolute Nucleated RBC 0 10^3/ul Nucleated RBC % 0 Sodium 129 L (135-145) mmol/L Potassium 4.1 (3.5-5.0) mmol/L Chloride 93 L (101-111) mmol/L Carbon Dioxide 26 (22-32) mmol/L Anion Gap 10 (2-11) mmol/L BUN 11 (6-24) mg/dL Creatinine 0.85 (0.67-1.17) mg/dL Est GFR ( Amer) 111.6 (>60) Est GFR (Non-Af Amer) 92.3 (>60) BUN/Creatinine Ratio 12.9 (8-20) Glucose 103 H (70-100) mg/dL Calcium 9.1 (8.6-10.3) mg/dL Result Diagrams: 10/05/18 22:16 10/05/18 22:16 Lab Statement: Any lab studies that have been ordered have been reviewed, and results considered in the medical decision making process. - CT Cervical Spine CT CT Interpretation Completed By: Radiologist Summary of CT Findings: 22:38. 1. Post operative and degenerative changes. 2. No acute fracture, subluxation, or aggressive osseous lesion. ED Physician has reviewed this imaging report. Brain CT CT Interpretation Completed By: Radiologist Summary of CT Findings: 22:33. No acute intracranial abnormality. ED Physician has reviewed this imaging report. - EKG 22:14 Cardiac Rate: NL - 70 BPM EKG Rhythm: Sinus Rhythm ST Segment: Normal Ectopy: None Summary of EKG Findings: Poor R wave progression Re-Evaluation - Re-Evaluation 1 Re-Evaluation Time: 23:31 Change: Improved - Patient is improved. He says his is too mad to come get him. Head Injury Course/Dx Course Of Treatment: Nurses note reviewed. Patient on Coumadin with elevation of INR and head injury. Positive LOC with alcohol on board. Head CT, cervical spine CT is negative. He was pain-free with range of motion in the neck. Patient is a heavy, daily drinker. Even on arrival he demonstrates clear speech and steady gait. He is allowed to sober here and his headache resolved. He will be held until safe ride is available. He has demonstrated functional capacity over the course of his ER stay as demonstrated by clear speech, steady gait and ability to reason. - Diagnoses Differential Diagnosis/HQI/PQRI: Cervical Sprain, Concussion With LOC, Hematoma , Intracranial Bleed Provider Diagnoses: Alcohol intoxication, Closed head injury, Concussion, Alcohol abuse, Elevated INR Discharge - Sign-Out/Discharge Documenting (check all that apply): Patient Departure - D/C - Discharge Plan Condition: Improved Disposition: HOME Patient Education Materials: Concussion (ED), Abuse of Alcohol (ED) Forms: *Work Release Referrals: Amina Estrada MD [Primary Care Provider] - Additional Instructions: Do not drink to excess. Do not drive while drinking. Return with severe headache, vomiting, difficulty with speech or balance, worse, new symptoms or other concerns. INR today is 3.67 -- call the doctor that manages this for any medication changes. - Billing Disposition and Condition Condition: IMPROVED Disposition: Home - Attestation Statements Document Initiated by Scribe: Yes Documenting Scribe: Arya Zhang Provider For Whom Scribe is Documenting (Include Credential): Mitchell Ramsey MD Scribe Attestation: Arya Walton scribed for Mitchell Ramsey MD on 10/06/18 at 0357. Scribe Documentation Reviewed: Yes Provider Attestation: The documentation as recorded by the Arya toth accurately reflects the service I personally performed and the decisions made by me, Mitchell Ramsey MD Status of Scribe Document: Viewed
[2018-10-05 23:03] LABS: INR 3.67 (0.77-1.02)
[2018-10-06 05:51] VITALS: BP 114/64
== END 2018-10-06 06:11 | disposition home or self-care (01) ==
LOC: ED 21:51
DX: S06.0X9A Concussion with loss of consciousness of unspecified duration, initial encounter (principal); F10.129 Alcohol abuse with intoxication, unspecified; R79.1 Abnormal coagulation profile; Z79.01 Long term (current) use of anticoagulants; Z85.46 Personal history of malignant neoplasm of prostate; I48.91 Unspecified atrial fibrillation; W10.9XXA Fall (on) (from) unspecified stairs and steps, initial encounter; Y92.9 Unspecified place or not applicable; I10 Essential (primary) hypertension; E78.00 Pure hypercholesterolemia, unspecified
CPT/HCPCS: 36415; 70450; 72125; 80048; 80320; 85025; 85610; 93005; 96361; 96374; 99282; A9270-GY; G0480; J2405

== ENCOUNTER 2019-11-24 08:37 | Day surgery (SDC) | payer BC ==
[~2019-11-24 08:37] MED LIST: Acetaminophen TAB* 325 MG PO PRN; Buffered Lidocaine 1% SYRIN* 1 ML/SYRINGE INTRADERM ONE; Dexamethasone TAB* 4 MG PO ONE; DiMENhydriNATE IV* 50 MG/ML VIAL IV PUSH PRN; Famotidine IV* 10 MG/ML 2 ML (20 mg) IV ONE; Lactated Ringers 1000 ML Bag* 1,000 ML IV SCH; Naloxone* 0.4 MG/ML 1 ML VIAL IV PRN; Ondansetron ODT TAB* 4 MG PO ONE; PROCHLORPERAZINE INJ 5 MG/ML 2 ML VIAL IV PRN; fentaNYL* 50 MCG/ML 2 ML VIAL (100 MCG VIAL) IV PRN; oxyCODONE TAB* 5 MG TAB PO PRN
[2019-11-24] MEDS ORDERED: Dexamethasone TAB* 4 MG ONE (09:16)
[2019-11-24] MEDS ORDERED: Ondansetron ODT TAB* 4 MG ONE (09:16)
[2019-11-24] MEDS ORDERED: ceFAZolin 2 GM PREMIX in ORs 2 GM/50 ML BAG ONE (09:16)
[2019-11-24] MEDS ORDERED: Famotidine IV* 10 MG/ML 2 ML (20 mg) ONE (09:16)
[2019-11-24] MEDS ORDERED: KETAMINE HCL* 50 MG/ML 10 ML VIAL ONE (09:58)
[2019-11-24] MEDS ORDERED: fentaNYL* 50 MCG/ML 2 ML VIAL (100 MCG VIAL) ONE (09:58)
[2019-11-24] MEDS ORDERED: Midazolam* 1 MG/ML 5 ML VIAL (5 MG) ONE (09:58)
[2019-11-24] MEDS ORDERED: Lidocaine 1% w EPI 1:100,000* MDV 20 ML VIAL ONE (10:37)
[2019-11-24] MEDS ORDERED: Mineral Oil Sterile, TOPICAL* 25 ML BTL ONE (10:38)
[2019-11-24] MEDS ORDERED: Bupivacaine 0.25% SDV PF* 10 ML VIAL INJ ONE (10:38)
[2019-11-24] MEDS ORDERED: Lidocaine 2% PF * 5 ML VIAL ONE (12:49)
[2019-11-24] MEDS ORDERED: Propofol* 500 MG/50 ML BTL ONE (12:49)
[2019-11-24 13:22] VITALS: BP 133/77
== END 2019-11-24 13:56 | disposition home or self-care (01) ==
LOC: OR 08:37
PROVIDERS: ATTEND Plastic Surgery
DX: C44.311 Basal cell carcinoma of skin of nose (principal); I10 Essential (primary) hypertension; I48.0 Paroxysmal atrial fibrillation; E78.00 Pure hypercholesterolemia, unspecified; Z85.46 Personal history of malignant neoplasm of prostate; Z87.442 Personal history of urinary calculi; E78.5 Hyperlipidemia, unspecified
CPT/HCPCS: 88305; 88331; 88332; A9270-GY; J0690; J2250; J2704; J3010; J3490; J8540